=== PATIENT | male | born 2005 | race Caucasian/White ===

== ENCOUNTER 2023-12-21 10:01 | Observation (INO) ==
[2023-12-21 11:05] LABS: Appearance Urine Clear (Clear); Bilirubin Urine Negative (Negative); Blood Urine Negative (Negative); Color Urine Yellow; Glucose Urine UA Negative (Negative); Ketones Urine Negative (Negative); Leukocyte Esterase Urine Negative (Negative); Nitrite Urine Negative (Negative); Protein Urine Negative (Negative); Specific Gravity Urine 1.022 (1.000-1.030); Urobilinogen Urine Negative (Negative); pH Urine 5.5 (4.5-7.5)
[2023-12-21 11:06] LABS: Basophils # (auto) 0.03 K/uL (0.00-0.20); Basophils % (auto) 0.3 %; Eosinophils # (auto) 0.16 K/uL (0.00-0.50); Eosinophils % (auto) 1.8 %; Hematocrit (blood only) 48.6 % (42.0-52.0); Hemoglobin 16.6 g/dl (14.0-18.0); Immature Granulocytes # (auto) 0.01 K/uL (0.01-0.20); Immature Granulocytes % (auto) 0.1 %; Lymphocytes # (auto) 1.77 K/uL (1.20-3.40); Lymphocytes % (auto) 19.8 %; Mean Corpuscular Hemoglobin 29.7 pg (25.0-34.0); Mean Corpuscular Hgb Conc 34.2 g/dL (32.0-36.0); Mean Corpuscular Volume 87.1 fL (80.0-100.0); Mean Platelet Volume 11.8 fL (9.4-12.4); Monocytes # (auto) 0.75 K/uL (0.11-0.59); Monocytes % (auto) 8.4 %; Neutrophils % (auto) 69.6 %; Platelet Count 226 K/uL (130-400); RDW Coefficient of Variation 13.1 % (11.5-14.5); RDW Standard Deviation 41.8 fL (36.4-46.3); Red Blood Count 5.58 M/uL (4.70-6.10); White Blood Count 8.92 K/ul (4.8-10.8)
[2023-12-21] MEDS: SODIUM CHLORIDE 0.9% 500 ML IV STA (11:20)
[2023-12-21 11:29] LABS: Albumin Globulin Ratio 1.1 (0.9-2); Albumin Level 4.2 gm/dl (3.4-5.0); BUN Creatinine Ratio 11.1 (10-20); Bilirubin,Total 0.9 mg/dl (0.2-1.0); Calcium 9.8 mg/dl (8.6-10.3); Creatinine Clr Calc Pharmacy 134.6 ml/min; Est GFR (Non-African American) 122.5 ml/min; Globulin 3.8 gm/dl (2.5-4.0); Potassium 4.3 mmol/L (3.5-5.1)
[2023-12-21] MEDS: KETOROLAC TROMETHAMINE 15 MG/ML VIAL IV STA (11:35)
--- NOTE | 2023-12-21 11:35 | Emergency Department Note ---
History of Present Illness General Chief complaint: Abdominal Pain Stated complaint: SHARP PAIN IN ABD PAIN, R/O APPENDICTISIS Time Seen by Provider: 12/21/23 11:03 History of Present Illness Maximum Pain Intensity: 6 18-year-old male who presents to the emergency department for evaluation of right lower abdominal pain. Patient states he was on spring last week in [place]. He states on Tuesday morning he developed nausea and a few episodes of vomiting. He states that around Tuesday evening then developed right lower quadrant abdominal pain. It is sharp and constant in nature. He denies any radiation. He has tried Advil with some mild relief. He was evaluated by [facility] and negative for COVID/flu. He denies any further episodes of vomiting but reports reduced appetite. No fever/chills, chest pain, shortness of breath, diarrhea/constipation, urinary symptoms. He reports a past medical history significant for asthma. Denies history of abdominal surgeries. Last ate around 10 PM last evening. He has not taken anything for his symptoms today. No known allergies. Home Medications Medication Instructions Recorded Confirmed Type methylphenidate HCl 10 mg tablet 10 mg PO .AFTERNOON PRN Other 12/21/23 12/21/23 History methylphenidate HCl 20 mg tablet 20 mg PO QAM 12/21/23 12/21/23 History multivitamin 1 tab PO DAILY 12/21/23 12/21/23 History oxycodone 5 mg tablet 5 - 10 mg (1 - 2 x 5 mg) PO 12/21/23 Rx .[id number] PRN pain #15 tabs Allergies Allergy/AdvReac Type Severity Reaction Status Date / Time pollen extracts Allergy Unknown Unknown Verified 12/21/23 14:42 Past Med/Surg History Medical History (Updated 12/21/23 @ 15:21 by Sven Chisholm MD) Encounter for pre-operative examination Asthma Social History Smoking Status: Current every day smoker Preferred Language: Belarusian Physical Exam Vital Signs Vital Signs - 24 hr 12/21/23 10:17 12/21/23 12:05 12/21/23 12:06 Temperature 37.1 C Temperature Source Oral Pulse Rate 72 56 L 54 L Pulse Rate [Apical] Pulse Rate [Bilateral Finger] Pulse Rhythm Regular Pulse Rhythm [Apical] Respiratory Rate 16 19 19 Respiratory Effort / Characteristics Non-Labored Spontaneous Respiratory Depth Normal Respiratory Pattern Regular Blood Pressure 147/94 H 131/64 Blood Pressure [Left Arm] Blood Pressure Mean 111 86 Blood Pressure Mean [Left Arm] Blood Pressure Position [Left Arm] Pulse Oximetry 97 99 99 Oxygen Delivery Method Room Air Room Air Room Air Oxygen Flow Rate Sepsis Recent Fever Within 48 Hours No Sepsis New/Unexplained Change in Mental Status No Sepsis Action Taken by Nursing No Action Required 12/21/23 12:10 12/21/23 13:00 12/21/23 14:22 Temperature Temperature Source Pulse Rate 52 L 57 L Pulse Rate [Apical] Pulse Rate [Bilateral Finger] 62 Pulse Rhythm Pulse Rhythm [Apical] Respiratory Rate 12 15 Respiratory Effort / Characteristics Non-Labored Spontaneous Respiratory Depth Normal Respiratory Pattern Regular Blood Pressure 131/64 Blood Pressure [Left Arm] 131/64 Blood Pressure Mean 86 Blood Pressure Mean [Left Arm] 86 Blood Pressure Position [Left Arm] Semi-fowlers Pulse Oximetry 97 98 Oxygen Delivery Method Room Air Room Air Oxygen Flow Rate Sepsis Recent Fever Within 48 Hours Sepsis New/Unexplained Change in Mental Status Sepsis Action Taken by Nursing 12/21/23 14:45 12/21/23 16:38 12/21/23 16:45 Temperature 36.7 C 37 C Temperature Source Oral Temporal Artery Scan Pulse Rate Pulse Rate [Apical] 57 L 89 71 Pulse Rate [Bilateral Finger] Pulse Rhythm Pulse Rhythm [Apical] Regular Regular Regular Respiratory Rate 20 19 16 Respiratory Effort / Characteristics Non-Labored Spontaneous Normal for Patient Non-Labored Spontaneous Non-Labored Spontaneous Respiratory Depth Normal Normal Normal Respiratory Pattern Regular Regular Regular Blood Pressure Blood Pressure [Left Arm] 133/81 135/78 120/57 L Blood Pressure Mean Blood Pressure Mean [Left Arm] 98 97 78 Blood Pressure Position [Left Arm] Semi-fowlers Semi-fowlers Semi-fowlers Pulse Oximetry 98 94 98 Oxygen Delivery Method Room Air Oxymask Oxymask Oxygen Flow Rate 5 5 Sepsis Recent Fever Within 48 Hours Sepsis New/Unexplained Change in Mental Status Sepsis Action Taken by Nursing Constitutional: alert and oriented x3. no acute distress. nontoxic HEENT: normocephalic, atraumatic. normal conjunctiva.PERRLA. EOM's grossly intact. Neck: neck is supple, nontender. no carotid bruits present bilaterally. C-spine nontender Respiratory: lungs are clear to auscultation without wheezes, rhonchi, or rales bilaterally. equal chest rise. normal respiratory effort, no accessory muscle use. Cardiovascular: normal heart sounds without murmur. regular rate and rhythm. GI: abdomen is soft, nondistended. Mild tenderness to the right lower quadrant. No palpable masses. No rebound tenderness or guarding. No CVA tenderness MSK: Moves all 4 extremities spontaneously Peripheral vascular: extremities warm and well perfused Psych:appropriate mood and affect. Course Administered Medications Lactated Ringer's (Lr) 1,000 mls @ 80 mls/hr IV .[id number] SACHA Stop: 01/20/24 13:14 Last Admin: 12/21/23 14:21 Dose: 80 mls/hr Documented By: ROGERS Lactated Ringer's (Lr) 1,000 mls @ 15 mls/hr IV .Q24H SACHA Stop: 01/20/24 14:44 Last Infusion: 12/21/23 15:35 Dose: Infused Documented By: Admin: 12/21/23 14:53 Dose: 15 mls/hr Documented By: AIDAN Discontinued Medications Bupivacaine HCl (Bupivacaine 0.5 % 5 Mg/1 Ml Mpf 30ml Vial) Confirm Administered Dose 30 ml .ROUTE .STK-MED ONE Stop: 12/21/23 15:08 Last Admin: 12/21/23 16:10 Dose: 23 ml Documented By: VICTORINO Sodium Chloride (Nss) 500 mls @ 999 mls/hr IV .Q31M STA Stop: 12/21/23 10:53 Last Infusion: 12/21/23 12:05 Dose: Infused Documented By: Admin: 12/21/23 11:20 Dose: 999 mls/hr Documented By: ROGELIO Piperacillin Sod/Tazobactam (Sod 4.5 gm/ Dextrose) 100 mls @ 200 mls/hr IV NOW ONE; Protocol Stop: 12/21/23 13:13 Last Infusion: 12/21/23 14:23 Dose: Infused Documented By: Admin: 12/21/23 13:45 Dose: 200 mls/hr Documented By: ROGERS Ioversol (Optiray 320 100ml) 94 ml IV ONCE ONE Stop: 12/21/23 11:51 Last Admin: 12/21/23 11:50 Dose: 94 ml Documented By: MIAH Ketorolac Tromethamine (Ketorolac Tromethamine 15 Mg/Ml Vial) 15 mg IV NOW STA Stop: 12/21/23 11:30 Last Admin: 12/21/23 11:35 Dose: 15 mg Documented By: MORRO Medical Decision Making Differential Diagnosis Appendicitis, testicular torsion, infections, diverticulitis, UTI, obstruction, mesenteric ischemia, aortic pathology, inflammatory bowel disease, renal colic, PUD, pancreatitis, biliary pathology, hernia, volvulus, constipation, as well as other pathologies. Laboratory Data Attestation: I reviewed the patient's lab results. 12/21/23 10:47 12/21/23 10:47 Lab Results 12/21/23 12/21/23 Range/Units 10:47 10:53 WBC 8.92 (4.8-10.8) K/ul RBC 5.58 (4.70-6.10) M/uL Hgb 16.6 (14.0-18.0) g/dl Hct 48.6 (42.0-52.0) % MCV 87.1 (80.0-100.0) fL MCH 29.7 (25.0-34.0) pg MCHC 34.2 (32.0-36.0) g/dL RDW Std Deviation 41.8 (36.4-46.3) fL RDW Coeff of Ian 13.1 (11.5-14.5) % Plt Count 226 (130-400) K/uL MPV 11.8 (9.4-12.4) fL Immature Gran % (Auto) 0.1 % Neut % (Auto) 69.6 % Lymph % (Auto) 19.8 % [place] % (Auto) 8.4 % Eos % (Auto) 1.8 % Baso % (Auto) 0.3 % Neut # (Auto) 6.20 (1.40-6.50) K/uL Lymph # (Auto) 1.77 (1.20-3.40) K/uL [place] # (Auto) 0.75 H (0.11-0.59) K/uL Eos # (Auto) 0.16 (0.00-0.50) K/uL Baso # (Auto) 0.03 (0.00-0.20) K/uL Immature Gran # (Auto) 0.01 (0.01-0.20) K/uL Sodium 137 (136-145) mmol/L Potassium 4.3 (3.5-5.1) mmol/L Chloride 102 (98-107) mmol/L Carbon Dioxide 27 (21-32) mmol/L Anion Gap 8 (3-11) BUN 10 (6-23) mg/dl Creatinine 0.90 (0.6-1.4) mg/dl Est Cr Clr Drug Dosing 134.6 ml/min Est GFR ( Amer) 142.0 ml/min Est GFR (Non-Af Amer) 122.5 ml/min BUN/Creatinine Ratio 11.1 (10-20) Glucose 109 H (70-99(Fasting)) mg/dl Calcium 9.8 (8.6-10.3) mg/dl Total Bilirubin 0.9 (0.2-1.0) mg/dl AST 18 (13-39) U/L ALT 17 (7-52) U/L Alkaline Phosphatase 72 (34-104) U/L Total Protein 8.0 (6.0-8.3) gm/dl Albumin 4.2 (3.4-5.0) gm/dl Globulin 3.8 (2.5-4.0) gm/dl Albumin/Globulin Ratio 1.1 (0.9-2) Lipase 11 (11-82) U/L Urine Color Yellow Urine Appearance Clear (Clear) Urine pH 5.5 (4.5-7.5) Ur Specific [place] 1.022 (1.000-1.030) Urine Protein Negative (Negative) Urine Glucose (UA) Negative (Negative) Urine Ketones Negative (Negative) Urine Blood Negative (Negative) Urine Nitrite Negative (Negative) Urine Bilirubin Negative (Negative) Urine Urobilinogen Negative (Negative) Ur Leukocyte Esterase Negative (Negative) Urine Opiates Screen Neg (Neg) Ur Methadone, Qual Neg (Neg) Urine Barbiturates Neg (Neg) Ur Phencyclidine (PCP) Neg (Neg) U Amphetamin/Meth Scrn Neg (Neg) MDMA (Ecstasy) Screen Neg (Neg) U Benzodiazepines Scrn Neg (Neg) Ur Cocaine Metabolite Neg (Neg) U Marijuana (THC) Screen Pos H (Neg) Imaging Data Radiologist's Impression: Abdomen/Pelvis CT 12/21/23 10:33 CT abd pelvis IV con only CLINICAL HISTORY: Abd pain, N/V TECHNIQUE: Helical axial images of the abdomen and pelvis were obtained and displayed. Automated dose lowering techniques and/or adjustment according to patient size were utilized for this exam. This exam was performed with intravenous contrast. CT DOSE: 509.26 mGy.cm COMPARISON: None available at the time of this dictation. FINDINGS: Lower chest: No acute abnormality. Liver: Unremarkable. No focal lesions are seen. Gallbladder and biliary tree: No calcified gallstones. Normal caliber wall. No intra- or extrahepatic biliary ductal dilation. Pancreas: Unremarkable, no focal lesions. Spleen: Unremarkable. Adrenals: Unremarkable. Kidneys and ureters: Unremarkable. Bladder: Limited evaluation due to underdistention. Reproductive organs: Unremarkable. Bowel: Marked dilation of the appendix measuring up to 29 mm with an appendicolith noted. The wall of the base of the appendix is not well visualized due to surrounding edema. Lymph nodes Retroperitoneal: Unremarkable. Pelvic: Unremarkable. Mesenteric: Subcentimeter lymph nodes are noted. Peritoneum: A small amount of free fluid is in the right lower quadrant. No well-defined fluid collections are seen. No pneumoperitoneum. Vessels: Unremarkable. Abdominal wall: Unremarkable. Bones: Unremarkable. IMPRESSION: Findings are concerning for appendicitis. The base of the appendix is not well seen, a small rupture cannot be excluded. No abscesses are noted. ACT 112: Negative or not required by law. Electronically signed by: Jenaro Dodson M.D. 12/21/2023 12:13 PM MDM Narrative 18-year-old male who presents to the emergency department for evaluation of right lower quadrant abdominal pain. Review of pertinent visits and past medical history performed. Vital signs in ED stable, afebrile. Patient was seen and evaluated as above. IV access was established and labs and imaging were obtained. CBC without leukocytosis or acute anemia. CMP without significant electrolyte abnormalities. Renal function within normal limits. LFTs and lipase unremarkable. Urinalysis negative for infection or blood. On exam, patient is well-appearing in no acute distress. He is mildly tender in the right lower quadrant without rebound tenderness or guarding. He was medicated with IV fluids and Toradol for pain. A CT abdomen/pelvis with contrast was performed given presentation and demonstrate findings consistent with appendicitis. The base of the appendix is not well-visualized and a small rupture cannot be excluded. No abscess noted. Case was discussed with on-call general surgery nurse practitioner, Shaw Rodriguez, who came to evaluate patient at bedside. Please see her documentation for further details. They are recommending urgent laparoscopic appendectomy. Patient was reassessed and notes mild improvement in his pain. He was offered additional pain control but declined. He was updated on all exam findings and test results as well as recommendations from general surgery. He is agreeable to plan. He was given a dose of IV Zosyn for preop antibiotics. He was taken to the OR in stable condition. Impression & Plan Appendicitis Discharge Plan Visit Data Chief Complaint: Abdominal Pain Stated Complaint: SHARP PAIN IN ABD PAIN, R/O APPENDICTISIS ED Provider: Jesus Ojeda ED Midlevel Provider: Linda Hung Discharge Problem: Appendicitis Patient Disposition: Being Evaluated by Surgeon Condition: Good Discharge Instructions Ena/Other Patient Handouts: Surgery for Appendicitis Activity Restrictions/Additional Instructions: SPECIAL CARE INSTRUCTIONS: * Cover incisions and change daily for comfort/drainage. * No lifting greater than 10lbs. * No driving while taking narcotic pain medication * No drinking alcohol while taking narcotic pain medication * May use ibuprofen for pain as tolerated. * Expect some swelling and bruising. Call your doctor if: * Temperature above 101 degrees * Pain not relieved by pain medicine ordered * There is increased drainage or redness from any incision * You have any unanswered questions or concerns [phone]. FOLLOW UP VISIT: If not already scheduled, please call the office for a follow-up visit. OFFICE PHONE NUMBER: Office Interventions: ED Discharge Assessment Last Done: 12/21/23 14:30 Forms Stand Alone Forms: Work/School Release (ED), [facility] Prescriptions Prescriptions: New oxycodone 5 mg tablet 5 - 10 mg PO .[id number] MDD no more than 6 tabs in 24hours PRN (Reason: pain) Qty: 15 0RF Rx Instructions: take one to two tablets by mouth every 4-6 hours as needed for pain. Continued multivitamin Tablet 1 tab PO DAILY methylphenidate HCl 10 mg Tablet 10 mg PO .AFTERNOON PRN (Reason: Other) methylphenidate HCl 20 mg Tablet 20 mg PO QAM Referrals Referrals: Olayinka Maloney DO, FACS [Physician] - (call our office for a follow up appointment in 2 weeks ) [place] [Primary Care Provider] -
[2023-12-21 11:44] LABS: Amphetamines+Metham, Urine Neg (Neg); Barbiturates, Urine Neg (Neg); Benzodiazepine, Urine Neg (Neg); Cocaine, Urine Neg (Neg); MDMA (Ecstacy), Urine Neg (Neg); Marijuana, Urine Pos (Neg); Methadone, Urine Neg (Neg); Opiate, Urine Neg (Neg); Phencyclidine, Urine Neg (Neg)
[2023-12-21] MEDS: OPTIRAY 320 100ml IV ONE (11:50)
--- NOTE | 2023-12-21 12:15 | CT Scan Report ---
CT abd pelvis IV con only CLINICAL HISTORY: Abd pain, N/V TECHNIQUE: Helical axial images of the abdomen and pelvis were obtained and displayed. Automated dose lowering techniques and/or adjustment according to patient size were utilized for this exam. This e xam was performed with intravenous contrast. CT DOSE: 509.26 mGy.cm COMPARISON: None available at the time of this dictation. FINDINGS: Lower chest: No acute abnormality. Liver: Unremarkable. No focal lesions are seen. Gallbladder and biliary tree: No calcified gallstones. Normal caliber wall. No intra- or extrahepatic biliary ductal dilation. Pancreas: Unremarkable, no focal lesions. Spleen: Unremarkable. Adrenals: Unremarkable. Kidneys and ureters: Unremarkable. Bladder: Limited evaluation due to underdistention. Reproductive organs: Unremarkable. Bowel: Marked dilation of the appendix measuring up to 29 mm with an appendicolith noted. The wall of the base of the appendix is not well visualized due to surrounding edema. Lymph nodes Retroperitoneal: Unremarkable. Pelvic: Unremarkable. Mesenteric: Subcentimeter lymph nodes are noted. Peritoneum: A small amount of free fluid is in the right lower quadrant. No well-defined fluid collec tions are seen. No pneumoperitoneum. Vessels: Unremarkable. Abdominal wall: Unremarkable. Bones: Unremarkable. IMPRESSION: Findings are concerning for appendicitis. The base of the appendix is not well seen, a small rupture cannot be excluded. No abscesses are noted. ACT 112: Negative or not required by law. Electronically signed by: Jenaro Dodson M.D. 12/21/2023 12:13 PM
[2023-12-21] MEDS ORDERED: ONDANSETRON INJ 2 MG/ML 2 ML VIAL IV PRN ×2 (13:15→15:20)
[2023-12-21] MEDS ORDERED: MoRPHine SULFATE 2 MG/ML CARP IV PRN (13:15)
--- NOTE | 2023-12-21 13:15 | Surgery Consultation ---
Date of Consultation December 21, 2023 Assessment & Plan (1) Appendicitis: Patient is a 18 yo male with PMH of ADHD, asthma that presented to the [facility] with c/o N/V that started last Tuesday12/17/23 and on going RLQ abdominal pain that began 12/18/23. Patient reports that the nausea and vomiting have subsided howev er the abdominal pain remains rating it 6/10 sharp stabbing. He denies fevers, chills, chest pain, SOB, change in bowel habits. Last BM was this AM and was normal for him. He denies blood thinners and any past surgical history. He has not had anything to eat or drink since last night 2200. Abdomen soft , non distended, TTP RLQ, without guarding VSS, afebrile, WBC wnl CT scan reading IMPRESSION: Findings are concerning for appendicitis. The base of the appendix is not well seen, a small rupture cannot be excluded. No abscesses are noted. Discussed results with patient and recommending Laparoscopic Appendectomy. Explained surgical procedure to patient and risks of surgery reviewed to include bleeding, anesthesia complications, , need for further surgery, infection, injury to other organs. Patient denies questions and would like to procedure with surgical intervention with rehabilitation services aide surgeon Dr. Maloney. . Keep NPO IV Fluids for hydration IV antiemetic IV antibiotics IV analgesic Supervising Physician Co-Signing Physician Notes Patient seen and examined, labs and imaging reviewed, agree with above. 18-year-old male presented with signs symptoms of abdominal pain over the past several days. On exam he is afebrile with stable vitals, tender to palpation in right lower quadrant with localized guarding. WBC normal. CT personally reviewed and interpreted and agree with the assessment of acute appendicitis with appendicolith, possible small perforation. Plan for laparoscopic appendectomy Risk the procedure were discussed to include but not limited to bleeding, infection, normal appendix, conversion open, damage surrounding structures, abscess, need for future more extensive surgeries, leak, and risk of anesthesia Potential discharge later today Wound care instructions and activity restrictions reviewed Return precautions given Follow-up in clinic in 2 weeks History of Present Illness Reason for Consultation: appendicitis Requesting Physician: Linda Hung History of Present Illness Patient is a 18 yo male with PMH of ADHD, asthma that presented to the [facility] with c/o N/V that started last Tuesday12/17/23 and on going RLQ abdominal pain that began 12/18/23. Patient reports that the nausea and vomiting have subsided however the abdominal pain remains rating it 6/10 sharp stabbing. He denies fevers, chills, chest pain, SOB, change in bowel habits. Last BM was this AM and was normal for him. He denies blood thinners and any past surgical history. He has not had anything to eat or drink since last night 2200. Allergies Allergy/AdvReac Type Severity Reaction Status Date / Time pollen extracts Allergy Unknown Unknown Unverified 12/21/23 13:37 Home Medications Medication Instructions Recorded Confirmed Type methylphenidate HCl 10 mg tablet 10 mg PO .AFTERNOON PRN Other 12/21/23 12/21/23 History methylphenidate HCl 20 mg tablet 20 mg PO QAM 12/21/23 12/21/23 History multivitamin 1 tab PO DAILY 12/21/23 12/21/23 History Patient History Social History Smoking Status: Current every day smoker Preferred Language: Luxembourgish Review of Systems Constitutional: no fever and no chills Eyes: no problem reported Ear, Nose, Mouth, Throat: no hearing loss Respiratory: no dyspnea Cardiovascular: no chest pain Gastrointestinal: + abdominal pain, + nausea and + vomitin g; no change in bowel habits Genitourinary: no dysuria Musculoskeletal: no muscle weakness Integumentary: no rash Neurologic: no confusion Physical Exam Physical Exam: alert oriented pleasant Constitutional: well developed, cooperative and comfortable; no acute distress tearful Eyes: PERRL, conjunctivae normal, anicteric sclerae ENMT: external ear and nose normal, oropharynx normal Neck: trachea midline, no thyromegaly Respiratory: normal respiratory effort, lungs clear to auscultation Cardiovascular: RRR, no murmur, no edema Gastrointestinal (Abdomen): Inspection/Auscultation: normal bowel sounds; abdomen not distended Percussion/Palpation: + abdomen tender (RRQ ) and abdomen soft; no guarding Musculoskeletal: no cyanosis or clubbing, extremities motor strength 5/5 Skin: no rashes, warm and dry Results & Data Vital Signs (Past 12 Hours) Vital Signs Temp Pulse Resp BP Pulse Ox O2 Del Method 12/21/23 12:10 52 L 12/21/23 12:06 54 L 19 99 Room Air 12/21/23 12:05 56 L 19 131/64 99 Room Air 12/21/23 10:17 98.8 F 72 16 147/94 H 97 Room Air Diagnostic Findings [facility] SYBIL Baker [phone] CT Scan Report Patient: WALKER BONNER Admit Date: 12/21/23 MR#: [id number] Address1: Acct ID:[id number] Address2: Date: 2005 [facility] Zip: Age: 18 Location: ED Sex: M Room/Bed: Att Phy: Diagnosis: SHARP PAIN IN ABD PAIN, R/O APPENDICTISIS Brandi Phy: [facility] Service Date: 12/21/23 Fam Phy: Interpreting Phy: Jenaro Dodson MDAdmit Phy: Ordering Phy: Aston Varner PA cc: ~ CT abd pelvis IV con only CLINICAL HISTORY: Abd pain, N/V TECHNIQUE: Helical axial images of the abdomen and pelvis were obtained and displayed. Automated dose lowering techniques and/or adjustment according to patient size were utilized for this exam. This exam was performed with intravenous contrast. CT DOSE: 509.26 mGy.cm COMPARISON: None available at the time of this dictation. FINDINGS: Lower chest: No acute abnormality. Liver: Unremarkable. No focal lesions are seen. Gallbladder and biliary tree: No calcified gallstones. Normal caliber wall. No intra- or extrahepatic biliary ductal dilation. Pancreas: Unremarkable, no focal lesions. Spleen: Unremarkable. Adrenals: Unremarkable. Kidneys and ureters: Unremarkable. Bladder: Limited evaluation due to underdistention. Reproductive organs: Unremarkable. Bowel: Marked dilation of the appendix measuring up to 29 mm with an appendicolith noted. The wall of the base of the appendix is not well visualized due to surrounding edema. Lymph nodes Retroperitoneal: Unremarkable. Pelvic: Unremarkable. Mesenteric: Subcentimeter lymph nodes are noted. Peritoneum: A small amount of free fluid is in the right lower quadrant. No well-defined fluid collections are seen. No pneumoperitoneum. Vessels: Unremarkable. Abdominal wall: Unremarkable. Bones: Unremarkable. IMPRESSION: Findings are concerning for appendicitis. The base of the appendix is not well seen, a small rupture cannot be excluded. No abscesses are noted. ACT 112: Negative or not required by law. Electronically signed by: Jenaro Dodson M.D. 12/21/2023 12:13 PM Dictated: 12/21/23 1202 Transcribed: 12/21/23 1202 Results Complete Blood Count Results: RBC 5.58 M/uL (4.70-6.10) 12/21/23 WBC 8.92 K/ul (4.8-10.8) 12/21/23 Hgb 16.6 g/dl (14.0-18.0) 12/21/23 Hct 48.6 % (42.0-52.0) 12/21/23 Plt Count 226 K/uL (130-400) 12/21/23 Results CMP Results: Na 137 mmol/L (136-145) 12/21/23 K 4.3 mmol/L (3.5-5.1) 12/21/23 Cl 102 mmol/L (98-107) 12/21/23 CO2 27 mmol/L (21-32) 12/21/23 Anion Gap 8 (3-11) 12/21/23 BUN 10 mg/dl (6-23) 12/21/23 Creatinine 0.90 mg/dl (0.6-1.4) 12/21/23 Estimated GFR ( Amer) 142.0 ml/min 12/21/23 Estimated GFR (Non-Af Amer) 122.5 ml/min 12/21/23 BUN/Creatinine Ratio 11.1 (10-20) 12/21/23 Glu 109 mg/dl (70-99(Fasting)) H 12/21/23 Ca 9.8 mg/dl (8.6-10.3) 12/21/23 Total Bilirubin 0.9 mg/dl (0.2-1.0) 12/21/23 AST 18 U/L (13-39) 12/21/23 ALT 17 U/L (7-52) 12/21/23 Alkaline Phosphatase 72 U/L (34-104) 12/21/23 TP 8.0 gm/dl (6.0-8.3) 12/21/23 Albumin 4.2 gm/dl (3.4-5.0) 12/21/23 Globulin 3.8 gm/dl (2.5-4.0) 12/21/23 Albumin/Globulin Ratio 1.1 (0.9-2) 12/21/23 PG Care Time/CCT Total # of Minutes Spent Total Time Spent with Patient: Total time spent is greater than 50% in coordination of care (as documented) at patient's floor/unit and/or counseling patient: Coding Level of Care Code 81926 OFFICE CONSULT LVL M Diagnoses Appendicitis K37
[2023-12-21] MEDS: PIPERACILLIN/TAZOBACTAM 4.5 GM in DEXTROSE 5% MINI-B 100 ML IV ONE (13:45)
[2023-12-21] MEDS: LACTATED RINGER'S 1,000 ML IV SCH ×2 (14:21→14:53)
[2023-12-21] MEDS ORDERED: fentaNYL citrate PF 100 MCG/2 ML VIAL ONE ×2 (14:50→16:02)
[2023-12-21] MEDS ORDERED: DEXAMETHASONE SOD INJ 4 MG/ML VIAL ONE (14:50)
[2023-12-21] MEDS ORDERED: LIDOCAINE 2% 2 ML VIAL/AMP(20MG/ML) INFIL ONE (14:50)
[2023-12-21] MEDS ORDERED: ONDANSETRON INJ 2 MG/ML 2 ML VIAL ONE (14:50)
[2023-12-21] MEDS ORDERED: MIDAZOLAM HCL 1 MG/ML 2ML VIAL ONE (14:50)
[2023-12-21] MEDS ORDERED: PROPOFOL IV EMULSION 10 MG/ML 20 ML VIAL IV ONE ×2 (14:50→15:53)
[2023-12-21] MEDS ORDERED: ePHEDrine sulfate 50 MG/ML AMP IV PRN (15:20)
[2023-12-21] MEDS ORDERED: ATROPINE SULFATE 0.1 MG/ML 10ML SYR IV PRN (15:20)
[2023-12-21] MEDS ORDERED: HYDROmorphone INJ 1 MG/ML SYRINGE IV PRN (15:20)
[2023-12-21] MEDS ORDERED: PROMETHAZINE HCL 6.25 MG in SODIUM CHLORIDE 0.9% 50 ML IV PRN (15:20)
[2023-12-21] MEDS ORDERED: fentaNYL citrate PF 100 MCG/2 ML VIAL IV PRN (15:20)
--- NOTE | 2023-12-21 15:22 | Anesthesiology Consultation ---
Date of Service December 21, 2023 Assessment & Plan (1) Encounter for pre-operative examination: Chart Review Chart Review: Acceptable Risk for Surgery and Patient NOT seen in Pre Admission Testing Consults Requested none History Surgery Operation Date: 12/21/23 10:20 Proposed Procedures p Laparoscopic Appendectomy - Olayinka Maloney DO, FACS Height/Weight Height: 5 ft 11 in Weight: 72.7 kg Allergies Allergy/AdvReac Type Severity Reaction Status Date / Time pollen extracts Allergy Unknown Unknown Verified 12/21/23 14:42 Medications Home Medications Medication Instructions Recorded Confirmed Last Taken methylphenidate HCl 10 mg tablet 10 mg PO .AFTERNOON PRN Other 12/21/23 12/21/23 1 Week Ago ~12/14/23 methylphenidate HCl 20 mg tablet 20 mg PO QAM 12/21/23 12/21/23 1 Week Ago ~12/14/23 multivitamin 1 tab PO DAILY 12/21/23 12/21/23 12/20/23 oxycodone 5 mg tablet 5 - 10 mg (1 - 2 x 5 mg) PO 12/21/23 Unknown .[id number] PRN pain #15 tabs Active Medications Generic Name Dose Route Start Last Admin Trade Name Freq PRN Reason Stop Dose Admin Lactated Ringer's 1,000 mls @ 80 mls/hr 12/21/23 13:15 12/21/23 14:21 Lr IV 01/20/24 13:14 80 mls/hr .[id number] SACHA Administration Lactated Ringer's 1,000 mls @ 15 mls/hr 12/21/23 14:45 12/21/23 14:53 Lr IV 01/20/24 14:44 15 mls/hr .Q24H SACHA Administration NPO Date Last Intake of Fluids: 12/21/23 Time Last Intake of Fluids: 09:00 Last Intake of Fluids Comment: Sip of water Date Last Intake of Solids: 12/20/23 Time Last Intake of Solids: 23:00 Past Medical History Medical History (Updated 12/21/23 @ 15:21 by Sven Chisholm MD) Encounter for pre-operative examination Asthma Exercise / Class Metabolic Activity 1 > 8 Run/Swim/Ski/Tennis Past Anesthesia History No Hx of Anesthesia Complications and No Family Hx of Anesthesia Complications Social History Smoking Status: Current every day smoker Physical Exam Vital Signs Last Vital Signs Temp 36.7 C 12/21/23 14:45 Pulse 57 L 12/21/23 14:45 Resp 20 12/21/23 14:45 BP 133/81 12/21/23 14:45 Pulse Ox 98 12/21/23 14:45 O2 Del Method Room Air 12/21/23 14:45 Testing Laboratory Results 12/21/23 10:47 12/21/23 10:47 Urine Color Yellow 12/21/23 10:53 Urine Appearance Clear (Clear) 12/21/23 10:53 Urine pH 5.5 (4.5-7.5) 12/21/23 10:53 Ur Specific [place] 1.022 (1.000-1.030) 12/21/23 10:53 Urine Protein Negative (Negative) 12/21/23 10:53 Urine Glucose (UA) Negative (Negative) 12/21/23 10:53 Urine Ketones Negative (Negative) 12/21/23 10:53 Urine Nitrite Negative (Negative) 12/21/23 10:53 Ur Leukocyte Esterase Negative (Negative) 12/21/23 10:53
[2023-12-21] MEDS ORDERED: ROCURONIUM BROMIDE 10 MG/ML 5 ML VIAL IV ONE ×5 (15:52)
[2023-12-21] MEDS ORDERED: ALBUTEROL HFA 8 GM INHALER INH ONE (15:54)
[2023-12-21] MEDS ORDERED: PHENYLEPHRINE HCL 10 MG/ML VIAL ONE (16:01)
[2023-12-21] MEDS: BUPIVACAINE 0.5 % 5 MG/1 ML MPF 30ML VIAL ONE (16:10)
[2023-12-21] MEDS ORDERED: SUGAMMADEX SODIUM 200 MG/2 ML VIAL IV ONE (16:10)
--- NOTE | 2023-12-21 16:24 | Operative Report ---
PG Post Operative Report Pre & Post Diagnosis Operation Date: 12/21/23 10:20 Pre-Op Diagnosis: Appendicitis Post-Op Diagnosis: Perforated Appendicitis I identified the patient and participated in the time-out.: Yes Procedure Operation Date: 12/21/23 10:20 Actual Procedures p Laparoscopic Appendectomy(Not Applicable) - Olayinka Maloney DO, EMILY Surgeon Olayinka Maloney DO, FACS Career Services Director [employer] Estimated Blood Loss 5 Findings Consistent with Post-Op Diagnosis Contained perforated appendicitis with fibrinous exudate. Healthy base. Good hemostasis Specimens Appendix Anesthesia Type General Complications none Disposition Accompanied Patient To Recovery: No Disposition: Recovery Room Indications 18-year-old male presented with signs symptoms of appendicitis confirmed by CT scan, plan for laparoscopic appendectomy. The risks of the procedure were discussed, all questions were answered, and the patient agreed to proceed with surgery as planned. Description of Procedure The patient was properly identified, consented, and taken to the operating room where he was placed in the supine position. General endotracheal anesthesia was induced. SCDs and a safety belt were placed. Preoperative antibiotics were administered. A Sanchez catheter was not placed. The patient's abdomen was prepped and draped in the standard sterile fashion. Surgical timeout was performed and all parties were in agreement that this was the correct patient and procedure to be performed and we continued as planned. A curvilinear infraumbilical incision was made with electrocautery and deepened down to the fascia with blunt dissection. The base of the umbilicus was grasped with a Zehra and elevated towards the ceiling. An incision was made in the midline fascia with a knife and entry into the peritoneum was confirmed. Stay suture of 0 Vicryl was placed and a Thomas trocar was inserted. The abdomen was insufflated with carbon dioxide which the patient tolerated without incident. The laparoscope was inserted and no damage from initial trocar placement was noted, no gross abnormalities were noted within the 4 quadrants the abdomen. 5 mm ports were then placed in the left lower quadrant with care not to damage the epigastric vessels, and in the suprapubic midline with care not to damage the bladder. The patient was placed in Trendelenburg position and rotated towards the left. The small bowel was swept away from the right lower quadrant. The cecum was grasped with an atraumatic grasper exposing the appendix. The appendix was partially retrocecal and adhesed to the abdominal wall. It was partially mobilized and was significantly inflamed, with fibrinous exudate and evidence of a contained perforation. There was some reactive fluid in the pelvis. A window was created between the base of the appendix and the mesoappendix. The base was quite healthy. A hairston loaded endoscopic stapler was then used to divide the appendix at its base. Sonicision was then used to divide the mesoappendix. Hemostasis was good. The appendix was placed in an Endo Catch bag and removed through the umbilical port site. The right lower quadrant and pelvis was irrigated and hemostasis was found to be good. 5 mm trochars were removed under direct visualization and the abdomen was allowed to collapse. The umbilical port site fascia was closed with 0 Vicryl suture. The wound was irrigated, and the skin of all ports was closed with 4-0 Monocryl subcuticular sutures. Dermabond was placed over the wounds. The patient was extubated in the operating room and taken to the PACU where he recovered without apparent incident. All sponge, instrument and needle counts were correct at the conclusion of the procedure. The patient tolerated the procedure well. The nurse practitioner was present and scrubbed for the entire case. She was critical in positioning the patient, prepping and draping, retraction and expos ure, driving the laparoscope, removal of the appendix, closure of the incisions, placement of the dressings I attest to the content of the Intraoperative Record and any orders documented therein. Any exceptions are noted below.
--- NOTE | 2023-12-21 16:44 | Anesthesiology Progress Note ---
Date of Service December 21, 2023 Anesthesia Post Procedure Vital Signs Vital Signs: Temp Pulse Pulse Pulse Resp BP BP 12/21/23 14:45 36.7 C 57 L 20 133/81 12/21/23 14:22 62 15 131/64 12/21/23 13:00 57 L 12 131/64 12/21/23 12:10 52 L 12/21/23 12:06 54 L 19 12/21/23 12:05 56 L 19 131/64 12/21/23 10:17 37.1 C 72 16 147/94 H Pulse Ox O2 Del Method 12/21/23 14:45 98 Room Air 12/21/23 14:22 98 Room Air 12/21/23 13:00 97 Room Air 12/21/23 12:10 12/21/23 12:06 99 Room Air 12/21/23 12:05 99 Room Air 12/21/23 10:17 97 Room Air Pain Intensity Abdomen: Pain Intensity: 6 Transfer of Care Handoff Completed per policy Notes Mental Status: alert / awake / arousable and participated in evaluation Patient Amnestic to Procedure: Yes Nausea / Vomiting: adequately controlled Pain: adequately controlled Airway Patency, RR, SpO2: stable & adequate BP & HR: stable & adequate Hydration State: stable & adequate Anesthetic Complications: no major complications apparent and Pt Satisfied with anesthetic care
[2023-12-21] MEDS ORDERED: MoRPHine SULFATE 4 MG/ML 1 ML CARP\\VIAL IV PRN (18:05)
[2023-12-21] MEDS ORDERED: oxyCODONE HCL IR 5 MG TAB (IMMEDIATE RELEASE) PO PRN ×2 (18:05)
[2023-12-21] MEDS ORDERED: ACETAMINOPHEN 1,000 MG/100 ML VIAL IV PRN (18:05)
[2023-12-21] MEDS ORDERED: ACETAMINOPHEN 325 MG TAB PO PRN (18:05)
[2023-12-21] MEDS: PIPERACILLIN/TAZOBACTAM 4.5 GM in DEXTROSE 5% MINI-B 100 ML IV SCH (19:59)
[2023-12-22 06:44] LABS: Hemoglobin 14.8 g/dl (14.0-18.0); Immature Granulocytes # (auto) 0.04 K/uL (0.01-0.20); Immature Granulocytes % (auto) 0.5 %; Lymphocytes # (auto) 0.96 K/uL (1.20-3.40); Lymphocytes % (auto) 11.1 %; Mean Corpuscular Hemoglobin 29.8 pg (25.0-34.0); Mean Corpuscular Hgb Conc 34.4 g/dL (32.0-36.0); Mean Corpuscular Volume 86.7 fL (80.0-100.0); Mean Platelet Volume 12.1 fL (9.4-12.4); Monocytes # (auto) 0.54 K/uL (0.11-0.59); Monocytes % (auto) 6.2 %; Neutrophils # (auto) 7.13 K/uL (1.40-6.50); Neutrophils % (auto) 82.2 %; Platelet Count 225 K/uL (130-400); RDW Coefficient of Variation 12.9 % (11.5-14.5); RDW Standard Deviation 40.8 fL (36.4-46.3); Red Blood Count 4.96 M/uL (4.70-6.10); White Blood Count 8.67 K/ul (4.8-10.8)
[2023-12-22 07:04] LABS: BUN Creatinine Ratio 9.6 (10-20); Calcium 9.5 mg/dl (8.6-10.3); Est GFR (African American) 146.8 ml/min; Est GFR (Non-African American) 126.7 ml/min; Potassium 4.5 mmol/L (3.5-5.1)
--- NOTE | 2023-12-22 08:38 | Surgery Progress Note ---
Date of Service December 22, 2023 Assessment & Plan (1) Appendicitis: Plan: POD#1 lap appendectomy for perforated appendicitis WBC 8.6, Hbg 14. vital signs are stable expected destin incisional discomfort that is manageable. incisions c/d/i tolerating a diet, no nausea/vomiting will plan for discharge to home on a course of po abx dispo instructions reviewed f/u in the office with Dr. Maloney within 2 weeks for post op check Admission and Anticipated Discharge Date Admission Date: December 21, 2023 Supervising Physician Co-Signing Physician Notes Patient discussed with ANTWON labs reviewed, agree with above. POD #1 laparoscopic appendectomy for perforated appendicitis with contained perforation. Feeling much better, tolerated diet, WBC normal. Okay to DC to home with antibiotics. Follow-up in 2 weeks. Wound care instructions and activity restrictions reviewed, call with questions or concerns Subjective Patient is feeling well this AM. Reports some soreness, pain a 2-3/10 compared to a 6-7/10 when he came in. Tolerating a diet, no nausea/vomiting. Passing a small amount of gas. Physical Exam Physical Exam: awake/alert, no distress Respiratory: normal respiratory effort Gastrointestinal (Abdomen): Inspection/Auscultation: abdomen not distended Percussion/Palpation: + abdomen tender (expected destin incisional discomfort ) and abdomen soft incisions c/d/i, dermabond in place Results & Data Vital Signs (Past 12 Hours) Vital Signs Temp Pulse Pulse Resp BP Pulse Ox O2 Del Method 12/22/23 07:47 98.4 F 53 L 16 115/66 95 Room Air 12/22/23 03:04 98.1 F 56 L 15 122/72 94 Room Air 12/21/23 22:27 98.1 F 56 L 16 125/71 95 Room Air 12/21/23 21:58 Room Air PG Care Time/CCT Total # of Minutes Spent Total Time Spent with Patient: Total time spent is greater than 50% in coordination of care (as documented) at patient's floor/unit and/or counseling patient: Coding Level of Care Code 76683 Post Operative Follow-Up Diagnoses Appendicitis K37
[2023-12-23 10:33] LABS: Marijuana Quant, GCMS Urine 637 ng/mL (<5)
--- NOTE | 2023-12-27 10:08 | Discharge Summary ---
Date of Service December 27, 2023 Principal Diagnosis acute perforated appendicitis Discharge Exam alert oriented pleasant Constitutional well developed, cooperative and comfortable; no acute distress Eyes PERRL, conjunctivae normal, anicteric sclerae ENMT external ear and nose normal, oropharynx normal Neck trachea midline, no thyromegaly Respiratory normal respiratory effort, lungs clear to auscultation Cardiovascular RRR, no murmur, no edema Gastrointestinal (Abdomen) Inspection/Auscultation: normal bowel sounds; abdomen not distended Percussion/Palpation: + abdomen tender (RRQ ) and abdomen soft; no guarding Musculoskeletal no cyanosis or clubbing, extremities motor strength 5/5 Skin no rashes, warm and dry Discharge Data Allergies Allergy/AdvReac Type Severity Reaction Status Date / Time pollen extracts Allergy Unknown Unknown Verified 12/21/23 14:42 Procedures Performed Operation Date: 12/21/23 10:20 Actual Procedures p Laparoscopic Appendectomy(Not Applicable) - Olayinka Maloney, DO, FACS Ordered Studies 12/21/23 10:33 CT abd pelvis IV con only Stat Hospital Course (1) Appendicitis: Patient is a 18 yo male that presented to the [facility] with c/o N/V that started 12/17/23 and on going RLQ abdominal pain that began 12/18/23. A CT scan in showed patient had acute appendicitis with possible rupture. He underwent an emergent laparoscopic appendectomy with Dr. Maloney . He was admitted to the hospital after the procedure for IV antibiotics, care and observation. His diet was advanced and he was tolerating without nausea and vomiting. His WBC were wnl, his pain was controlled and his VSS. He was discharged on 12/22/23 in stable condition and was given a prescription for oral antibiotics and pain medication. He verbalized understanding of discharge instructions, return precautions, and follow up appointments. Total Time Total Time Spent Total Time Spent (In Minutes): 30 Discharge Plan Discharge Items Patient Disposition: Home - Self-Care Reason For Visit: APPENDICITIS Discharge Diagnosis: laparoscopic appendectomy Condition on Discharge: Good Activity: Per Instructions section Lifting: No more than 10 pounds Bathing Comment: may shower; no soaking in tubs/pools x 2 weeks Exercise/Sports: Wait until after follow-up appointment Driving/Machine Use: no driving while on narcotics for pain Non-emergency contact: Surgeon Call non-emergency contact if: you have any medication questions, your pain is not controlled, you have a fever, your temperature is above 101.5, your wound has increased redness, your wound has increased drainage and your wound pain has increased Follow-up/Referrals: Olayinka Maloney DO, FACS [Physician] - 01/05/24 9:15 am (please call to schedule follow up in clinic within 2 weeks) [facility] [Primary Care Provider] - Diet: Regular Addtl Attending Provider Instructions: You have skin glue over your incisions called dermabond. you may shower with this on. It will tend to dissolve and fall off within a couple weeks. Do not pick at the skin glue You may purchase Tylenol and/or Ibuprofen over the counter if needed for additional pain control over the next few days. Take per manufacturers instructions Please complete the full course of antibiotic prescribed to you Do not drink alcohol or smoke weed if you are taking the narcotic for pain Pending Studies at Discharge: Yes Studies:: surgical pathology Stand-Alone Forms: [facility] [employer], Smoking Cessation Medications and DC Order Prescriptions: New oxycodone 5 mg tablet 5 - 10 mg PO .[id number] MDD no more than 6 tabs in 24hours PRN (Reason: pain) Qty: 15 0RF Rx Instructions: take one to two tablets by mouth every 4-6 hours as needed for pain. amoxicillin-pot clavulanate 875-125 mg tablet 1 tab PO BID Qty: 14 0RF Continued multivitamin Tablet 1 tab PO DAILY methylphenidate HCl 10 mg Tablet 10 mg PO .AFTERNOON PRN (Reason: Other) methylphenidate HCl 20 mg Tablet 20 mg PO QAM Discharge Orders: Discharge Order (Routine); Ordered 12/22/23 Ordered By: Isabell Zapata Admission Data Admit Date/Time: 12/21/23 16:28 Attending Provider: Olayinka Maloney Admit Provider: Olayinka Maloney Primary Care Provider: [facility] Other Interventions: Discharge Summary Assessment (RN) Last Done: 12/22/23 09:11 Coding Level of Care Code 27372 IN/OBS DISCH 30 MIN/LESS Diagnoses Appendicitis K37
== END 2023-12-22 09:50 | disposition home or self-care (01) ==
LOC: PACUINP 10:01 → ED 10:01 → 3N 14:30